=== PATIENT | female | born 1995 | race Caucasian/White ===

== ENCOUNTER 2018-01-26 10:50 | Emergency (ER) | payer OTHER ==
[2018-01-26 10:58] VITALS: BP 125/71; PULSE 78; TEMP 98.2; BMI 31.6
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
== END 2018-01-26 11:22 | disposition home or self-care (01) ==
LOC: JERFT 10:50
DX: S66.911A Strain of unspecified muscle, fascia and tendon at wrist and hand level, right hand, initial encounter (principal); X58.XXXA Exposure to other specified factors, initial encounter; Y93.89 Activity, other specified; Y92.89 Other specified places as the place of occurrence of the external cause
CPT/HCPCS: 99281-25